=== PATIENT | female | born 1940 | race Caucasian/White ===

== ENCOUNTER 2018-12-19 01:15 | Inpatient (IN) | payer OTHER ==
[~2018-12-19] VITALS: Ht 154.9 cm; Wt 77.1 kg
--- NOTE | 2018-12-19 01:23 | NUR ---
Pt ambulates to ER with c/o being stung by a bee to her right lower extremity 1 hour prior to arrival. Pt states she has itching to her chest & palms and tongue swelling. Pt placed on clinical research monitor. SA02 99% room air. Pt able to speak in complete sentences. Speech clear.
[2018-12-19] MEDS ORDERED: FAMOTIDINE. 20 MG/2 ML VIAL IV ONE ×2 (01:30→01:42)
[2018-12-19] MEDS ORDERED: EPINEPHRINE-PF 1:1000 1 MG/ML AMPUL SQ ONE (01:30)
[2018-12-19] MEDS ORDERED: IV NORMAL SALINE 1000 ML BAG IV ONE (01:30)
[2018-12-19] MEDS ORDERED: methylPREDNISolone SOD SUCC 125 MG/2 ML VIAL IV ONE (01:30)
[2018-12-19] MEDS ORDERED: diphenhydrAMINE 50 MG/1 ML VIAL IV ONE ×2 (01:30→09:00)
[2018-12-19] MEDS ORDERED: diphenhydrAMINE 50 MG/1 ML VIAL ONE (01:42)
[2018-12-19] MEDS ORDERED: EPINEPHRINE 1 MG/1 ML AMP ONE (01:42)
[2018-12-19] MEDS ORDERED: methylPREDNISolone SOD SUCC 125 MG/2 ML VIAL ONE (01:42)
[2018-12-19] MEDS ORDERED: [UNRECOGNIZED DRUG - CODE] PO (01:45)
[2018-12-19] MEDS ORDERED: ASPI-605 PO (01:45)
[2018-12-19] MEDS ORDERED: ALBUTEROL SULFATE 2.5 MG/3 ML NEBU NEB ONE (02:00)
[2018-12-19] MEDS ORDERED: ALBUTEROL SULFATE 2.5 MG/3 ML NEBU ONE (02:06)
--- NOTE | 2018-12-19 02:09 | NUR ---
Pt states she feels so much better. Denies any pain or shortness of breath. SA02 98% room air. HR 103 SR on instrument mechanic weapons system. Pt receiving breathing tx at this time.
[2018-12-19 02:31] LABS: BASOPHILS % (AUTO) 0.3 % (0.0-2.0); EOSINOPHILS # (AUTO) 0.1 K/uL (0.0-0.7); EOSINOPHILS % (AUTO) 1.1 % (0.0-7.0); HEMATOCRIT 40.5 % (31.2-41.9); HEMOGLOBIN 13.4 g/dL (10.9-14.3); LYMPHOCYTES # (AUTO) 2.4 K/uL (20.0-40.0); LYMPHOCYTES % (AUTO) 33.8 % (20.5-51.5); MEAN CORPUSCULAR HEMOGLOBIN 31.7 uug (24.7-32.8); MEAN CORPUSCULAR HGB CONC 33 g/dL (32.3-35.6); MEAN CORPUSCULAR VOLUME 95.8 fL (75.5-95.3); MONOCYTES # (AUTO) 0.5 K/uL (2.0-10.0); MONOCYTES % (AUTO) 6.4 % (0.0-11.0); NEUTROPHILS # (AUTO) 4.2 K/uL (1.8-8.9); NEUTROPHILS % (AUTO) 58.4 % (38.5-71.5); PLATELET COUNT (AUTO) 204 K/uL (179-408); RED BLOOD CELL COUNT(AUTO) 4.23 MIL/uL (3.63-4.92); WHITE BLOOD COUNT (AUTO) 7.2 K/uL (3.8-11.8)
[2018-12-19 02:32] LABS: CARBON DIOXIDE 25 mmol/L (21-32); CHLORIDE 101 mmol/L (98-107); CREATININE 0.8 mg/dL (0.6-1.3); GLUCOSE 237 mg/dL (74-106); UREA NITROGEN, BLOOD 14 mg/dL (7-18)
[2018-12-19 02:43] LABS: ALANINE AMINOTRANSFERASE 24 U/L (14-59); ALKALINE PHOSPHATASE 74 U/L (50-136); ASPARTATE AMINOTRANSFERASE 22 U/L (15-37); BILIRUBIN,DIRECT 0.1 mg/dL (0.0-0.2); BILIRUBIN,TOTAL 0.6 mg/dL (0.2-1.0); TOTAL PROTEIN, SERUM 7.3 g/dL (6.4-8.2)
[2018-12-19] MEDS ORDERED: HYDROCODONE/APAP 5-325MG TABLET PO PRN (03:30)
[2018-12-19] MEDS ORDERED: MAGNESIUM HYDROXIDE 30 ML LIQUID UDC PO PRN (03:30)
[2018-12-19] MEDS ORDERED: ACETAMINOPHEN 325 MG TABLET PO PRN (03:30)
[2018-12-19] MEDS ORDERED: ONDANSETRON 4 MG/2 ML VIAL IV PRN (03:30)
[2018-12-19] MEDS ORDERED: Z GUARD REMEDY PASTE 57 GM TUBE TOP PRN (03:30)
--- NOTE | 2018-12-19 03:40 | NUR ---
Assumed care of patient for break coverage. patient in bed, awaiting inpatient admission at this time. pending clearance from insurance. Per ER MD, patient is not stable for transfer due to angioedema and airway related risks. Patient currently in bed, respirations even and unlabored. No cardiovascular distress noted. + angioedema to assessment, speach is clear, no airway blockage is noted at this time. Will continue to monmitor patient. patient is sinus tach on conveyor monitor. SaO2 @ 97% on room air. Patient to be admitted at CCU admit if cleared for admission at this facility. Plan of care is reviewed with the patient and she is agreeable to inpatient admission.
--- NOTE | 2018-12-19 04:40 | NUR ---
No update yet from pt's insurance, [employer], regarding authorization for pt admission to this facility. Still pending. Pt is in room 1A. Respirations even + unlabored. Denies any new symptom at this time. Will continue to monitor.
--- NOTE | 2018-12-19 04:49 | NUR ---
Paged In Flow for panel call.
--- NOTE | 2018-12-19 04:51 | NUR ---
Dr. Gage BEYER MD speaking to Dr. Schneider via telephone.
--- NOTE | 2018-12-19 05:11 | NUR ---
Pt. admitted to [facility], under care of Dr. Schneider. Diagnosis: Angioedema of the Tongue. Belongs List completed
[2018-12-19] MEDS ORDERED: SULFAMETH/TRIMETH 800/160 MG TABLET PO ONE (05:15)
[2018-12-19] MEDS ORDERED: TDAP DIPH,PERTUSS,TET VAC/PF 0.5 ML DISP.SYRIN IM ONE ×2 (05:15→05:16)
[2018-12-19] MEDS ORDERED: SULFAMETH/TRIMETH 800/160 MG TABLET ONE (05:16)
[2018-12-19] MEDS: IV NS 1000 ML 1,000 ML IV PRN (06:05)
[2018-12-19 06:40] VITALS: BP 175/86
--- NOTE | 2018-12-19 07:15 | NUR ---
RECEIVED PATIENT RESTING IN BED. NO DISTRESS NOTED. BED IN LOWEST POSITION, SIDE RAILS UP X2, CALL LIGHT WITHIN REACH. WILL CONTINUE TO MONITOR.
--- NOTE | 2018-12-19 07:19 | NUR ---
Admitted pt to room 304; AAOx4; ambulatory; initially on TELE TD status and Dr Oneill ordered Telemetry; MD was paged for clarification of orders; IVF started; Home meds needs to be reconciled; report given to Monserrat for continuity of care.
--- NOTE | 2018-12-19 07:22 | NUR ---
Pt rested well in between care; oral care done tracvhe care done; sacral dressing changed; repositioned q2h; remains tachycardia; continue to monitor; continue plan of care.
[2018-12-19] MEDS ORDERED: ALBUTEROL SULFATE 2.5 MG/ 0.5 ML NEBU NEB PRN (08:00)
[2018-12-19] MEDS ORDERED: ALBUTEROL SULFATE 2.5 MG/3 ML NEBU NEB PRN (08:15)
[2018-12-19] MEDS ORDERED: methylPREDNISolone SOD SUCC 40 MG/ML VIAL IV SCH (09:00)
[2018-12-19] MEDS ORDERED: diphenhydrAMINE 50 MG/1 ML VIAL IV SCH (09:00)
[2018-12-19] MEDS: methylPREDNISolone SOD SUCC 40 MG/ML VIAL IV SCH ×2 (09:11→17:49)
[2018-12-19] MEDS: SULFAMETH/TRIMETH 800/160 MG TABLET PO SCH ×2 (09:11→20:00)
[2018-12-19] MEDS: FAMOTIDINE. 20 MG/2 ML VIAL IV SCH (09:11)
[2018-12-19] MEDS ORDERED: LISINOPRIL 20 MG TABLET PO ONE (10:45)
[2018-12-19] MEDS ORDERED: CLONIDINE HCL 0.1 MG TABLET PO ONE (10:45)
[2018-12-19] MEDS ORDERED: CLONIDINE HCL 0.1 MG TABLET PO PRN (10:45)
[2018-12-19 11:13] VITALS: BP 188/84
[2018-12-19] MEDS: ASPIRIN EC 81 MG TABLET.DR PO SCH (11:20)
[2018-12-19] MEDS ORDERED: LISI1TAB11 PO (11:37)
[2018-12-19 17:20] VITALS: BP 130/79
[2018-12-19] MEDS: diphenhydrAMINE 50 MG/1 ML VIAL IV SCH (17:49)
--- NOTE | 2018-12-19 18:08 | NUR ---
PATIENT RESTED INTERMITTENTLY THROUGHOUT DAY, NO DISTRESS NOTED. PATIENT DENIES PAIN AND DISCOMFORT. PATIENT RECEIVED IV SOLUMEDROL ORDERED FOR INFLAMMATION, IV HYDRATION MAINTAINED. SAFETY MEASURES PROVIDED
--- NOTE | 2018-12-19 19:20 | NUR ---
Received patient lying in bed. Asleep but easily arouse to verbal stimuli. AOx4. In no acute distress. Denies any pain or SOB. NSR on tele at 96/min. IV site on left upper arm intact and patent. IVF infusing. BLE with 2+ pitting edema. Encourage to elevate with pillows. Needs assessed and attended to. Safety measure initiated and call amos within reach.
[2018-12-19 19:53] VITALS: BP 153/77
[2018-12-20 00:27] VITALS: BP 145/76
[2018-12-20] MEDS: IV NS 1000 ML 1,000 ML IV PRN (00:37)
[2018-12-20] MEDS: methylPREDNISolone SOD SUCC 40 MG/ML VIAL IV SCH ×2 (01:01→10:07)
[2018-12-20] MEDS: diphenhydrAMINE 50 MG/1 ML VIAL IV SCH ×2 (01:01→08:28)
[2018-12-20 05:10] VITALS: BP 138/70
--- NOTE | 2018-12-20 05:45 | NUR ---
Patient's temp was running low. 95.8. Called MD Schneider. Ordered romy wyatt. Will continue to monitor.
--- NOTE | 2018-12-20 06:20 | NUR ---
Remains AOx4. In no acute distress. Denies any pain or SOB. NSR on tele at 98/min. No adverse effect noted from PO ABX. IV site on left upper arm intact and patent. IVF continue to infuse. BLE still with 2+ pitting edema. Needs assessed and attended to. Safety measure maintained and call amos within reach.
--- NOTE | 2018-12-20 06:21 | NUR ---
Patient slept intermittently t/o shift. No c/o pain or SOB. BP running low, temp running low. Made MD aware. New orders given. Jorge hugger on patient at the moment. Patient remains A/O x 4. Otherwise sating normal on room air. TELE is SR at 86. Wound care provided. IVFluids infusing on the PICC line on the right upper arm, patent and intact. All meds given as ordered, all need met. Safety and comfort measures maintained t/o shift.
[2018-12-20 06:37] LABS: BASOPHILS % (AUTO) 0.2 % (0.0-2.0); HEMATOCRIT 36.7 % (31.2-41.9); HEMOGLOBIN 12.2 g/dL (10.9-14.3); LYMPHOCYTES % (AUTO) 7.3 % (20.5-51.5); MEAN CORPUSCULAR HEMOGLOBIN 31.8 uug (24.7-32.8); MEAN CORPUSCULAR HGB CONC 33 g/dL (32.3-35.6); MEAN CORPUSCULAR VOLUME 95.4 fL (75.5-95.3); MONOCYTES # (AUTO) 0.4 K/uL (2.0-10.0); MONOCYTES % (AUTO) 2.8 % (0.0-11.0); NEUTROPHILS # (AUTO) 12.2 K/uL (1.8-8.9); NEUTROPHILS % (AUTO) 89.7 % (38.5-71.5); PLATELET COUNT (AUTO) 185 K/uL (179-408); RED BLOOD CELL COUNT(AUTO) 3.85 MIL/uL (3.63-4.92); WHITE BLOOD COUNT (AUTO) 13.6 K/uL (3.8-11.8)
[2018-12-20 07:08] LABS: ALANINE AMINOTRANSFERASE 31 U/L (14-59); ALKALINE PHOSPHATASE 67 U/L (50-136); ASPARTATE AMINOTRANSFERASE 29 U/L (15-37); BILIRUBIN,TOTAL 0.5 mg/dL (0.2-1.0); CARBON DIOXIDE 22 mmol/L (21-32); CHLORIDE 104 mmol/L (98-107); CHOLESTEROL 179 mg/dL (<200); CREATININE 0.8 mg/dL (0.6-1.3); GLUCOSE 220 mg/dL (74-106); HDL CHOLESTEROL 50 mg/dL (40-60); MAGNESIUM 1.9 mg/dL (1.8-2.4); PHOSPHOROUS 2.1 mg/dL (2.5-4.9); POTASSIUM 3.8 mmol/L (3.5-5.1); TOTAL PROTEIN, SERUM 6.9 g/dL (6.4-8.2); TRIGLYCERIDES 104 MG/DL (30-150); UREA NITROGEN, BLOOD 15 mg/dL (7-18)
--- NOTE | 2018-12-20 07:10 | NUR ---
PATIENT RESTING IN BED. NO DISTRESS NOTED AT THIS TIME. BED IN LOWEST POSITION, SIDE RAILS UP X2, CALL LIGHT WITHIN REACH. WILL CONTINUE TO MONITOR.
[2018-12-20] MEDS ORDERED: NEUTRA PHOS PACKET PO ONE (08:00)
[2018-12-20] MEDS: ASPIRIN EC 81 MG TABLET.DR PO SCH (08:28)
[2018-12-20] MEDS: FAMOTIDINE. 20 MG/2 ML VIAL IV SCH (08:28)
[2018-12-20] MEDS: SULFAMETH/TRIMETH 800/160 MG TABLET PO SCH (08:28)
[2018-12-20] MEDS ORDERED: LISINOPRIL 20 MG TABLET PO SCH (09:00)
[2018-12-20 11:15] VITALS: BP 157/67
[2018-12-20] MEDS ORDERED: EPIN0.3P3 IJ (11:49)
[2018-12-20] MEDS ORDERED: DIPH25TA62 PO (11:49)
[2018-12-20] MEDS ORDERED: SULF1TAB48 PO (11:49)
--- NOTE | 2018-12-20 13:00 | NUR ---
PATIENT DISCHARGED. REVIEWED D/C INSTRUCTIONS WITH PATIENT. PATIENT VERBALIZES UNDERSTANDING. PRESCRIPTIONS GIVEN. ACCOMPANIED PATIENT DOWN TO ELEVATOR. NO COMPLICATIONS.
== END 2018-12-20 13:00 | disposition home health service (06) | DRG 916 ==
LOC: ER 01:18 → TELE-TD3 04:50 → TELE3 06:41
PROVIDERS: ADMIT Nurse Practitioner Acute Care; ATTEND Nurse Practitioner Acute Care
DX: T78.2XXA Anaphylactic shock, unspecified, initial encounter (principal); L03.115 Cellulitis of right lower limb; J98.11 Atelectasis; T78.3XXA Angioneurotic edema, initial encounter; T63.441A Toxic effect of venom of bees, accidental (unintentional), initial encounter; Y92.017 Garden or yard in single-family (private) house as the place of occurrence of the external cause; E66.9 Obesity, unspecified; I10 Essential (primary) hypertension; Z87.892 Personal history of anaphylaxis; Z68.32 Body mass index [BMI] 32.0-32.9, adult; J40 Bronchitis, not specified as acute or chronic; E11.65 Type 2 diabetes mellitus with hyperglycemia; Z88.0 Allergy status to penicillin
CPT/HCPCS: 36415; 70030-TC; 71045; 83735; 84100; 85025; 90715; 93005; A4663; G0378; J0171; J1200; J2920; J2930; J3490; J7030